=== PATIENT | female | born 2000 | race African-American/Black ===

== ENCOUNTER 2023-02-25 23:31 | Emergency (ER) | payer SELFPAY ==
[~2023-02-25] VITALS: Ht 177.8 cm; Wt 95.0 kg
[2023-02-25 23:51] VITALS: TEMP 98.5; O2SAT 98
[2023-02-26] MEDS ORDERED: LIDOCAINE HCL/PF 1% 10 MG/ML 5ML VIAL INFIL ONE (00:30)
[2023-02-26] MEDS ORDERED: KETOROLAC 30MG/ML VIAL IM ONE (00:30)
[2023-02-26] MEDS ORDERED: BACITRACIN ZINC OINT UDPKT TOP ONE (00:30)
[2023-02-26 01:21] VITALS: BP 140/78; PULSE 100; RESP 16
== END 2023-02-26 02:29 | disposition home or self-care (01) ==
LOC: ER 23:31
DX: S61.012A Laceration without foreign body of left thumb without damage to nail, initial encounter (principal); V99.XXXA Unspecified transport accident, initial encounter; Y93.89 Activity, other specified; Y92.89 Other specified places as the place of occurrence of the external cause; Y99.8 Other external cause status
CPT/HCPCS: 99283; 12002; 96372; J1885; J3490; Z7610

== ENCOUNTER 2024-11-06 04:35 | Emergency (ER) | payer OTHER, MEDICAID ==
[~2024-11-06] VITALS: Ht 162.6 cm; Wt 145.0 kg
[2024-11-06 04:45] VITALS: O2SAT 100
[2024-11-06] MEDS: ONDANSETRON 4MG ODT PO ONE (05:16)
[2024-11-06 05:45] LABS: BASOPHILS % 0.5 % (0.0-2.0); EOSINOPHILS % 0.1 % (0.0-5.0); HEMATOCRIT. 40.0 % (36.0-48.0); HEMOGLOBIN. 13.6 g/dL (12.0-16.0); LYMPHOCYTES % 15.2 % (20.0-50.0); MEAN PLATELET VOLUME 8.1 fl (7.4-10.4); MONOCYTES % 3.5 % (2.0-8.0); NEUTROPHILS % 80.7 % (40.0-76.0); PLATELET 401 x1000/uL (130-400); RED BLOOD CELL COUNT 4.40 mill/uL (4.2-5.4); RED CELL DISTRIBUTION WIDTH 13.5 % (11.6-14.6)
[2024-11-06] MEDS: SODIUM CHLORIDE 0.9% 1,000 ML IV ONE (06:02)
[2024-11-06] MEDS: ONDANSETRON HCL 4MG/2ML INJ IV ONE ×2 (06:02→07:50)
[2024-11-06 06:04] LABS: CREATININE 0.7 mg/dL (0.6-1.0)
[2024-11-06 06:05] LABS: ETHANOL BLOOD 18 mg/dL (<10); UREA NITROGEN BLOOD 6 mg/dL (9-23)
[2024-11-06 06:06] LABS: ASPARTATE AMINOTRANSFERASE 58 IU/L (<34); BILIRUBIN DIRECT 0.1 mg/dL (<=3.0)
[2024-11-06 06:07] LABS: BILIRUBIN TOTAL 0.5 mg/dL (0.1-1.0); PROTEIN TOTAL 7.8 g/dL (6.0-8.3)
[2024-11-06 06:20] LABS: HCG SCREEN NEGATIVE
[2024-11-06 08:05] VITALS: TEMP 37.1; O2SAT 98
[2024-11-06 08:25] VITALS: BP 135/81; PULSE 74; RESP 10
[2024-11-06] MEDS: KETOROLAC 30MG/ML VIAL IV ONE (08:25)
[2024-11-06] MEDS ORDERED: ONDA4TAB50 PO (08:57)
[2024-11-06] MEDS ORDERED: TOPUD PO (08:57)
== END 2024-11-06 09:10 | disposition home or self-care (01) ==
LOC: ER 04:35 → CANBEDREQ 08:55 → ER 09:10
DX: R10.84 Generalized abdominal pain (principal); R11.2 Nausea with vomiting, unspecified; Z79.899 Other long term (current) drug therapy
CPT/HCPCS: 80076; 80048; 80307; 80329; 80320; 84703; 83690; 85025; 36415; 93005; 96361; 96374; 96375; 96376; 99284; Q0162; J1885; J2405; J7030; Z7610; G0480